=== PATIENT | male | born 1965 | race Caucasian/White ===

== ENCOUNTER 2024-03-01 06:41 | Day surgery (SDC) | payer BC, SELFPAY ==
[2024-02-25 13:55] VITALS: BMI 27.9
[2024-02-25 14:02] LABS: Hematocrit 41.9 % (39.0-52.0); Hemoglobin 13.9 g/dL (13.0-18.0); Mean Corp Hgb Conc. 33.2 g/dL (33.0-37.0); Mean Corpuscular Volume 93.3 fL (80.0-94.0); Mean Platelet Volume 9.7 fL (7.4-10.4); Platelet Count 266 10^3/uL (130-400); Red Blood Cell Count 4.49 10^6/uL (4.70-6.10); Red Cell Dist. Width 12.7 % (11.5-14.5); White Blood Cell Count 7.2 10^3/uL (4.8-10.8)
[2024-02-25 14:49] LABS: Glycohemoglobin (HgbA1c) 5.9 % (4.0-5.6)
[2024-02-25 15:48] LABS: ALT (SGPT) 54 U/L (0-50); AST (SGOT) 44 U/L (17-59); Albumin 5.3 g/dl (3.5-5.0); Alkaline Phosphatase 102 U/L (38-126); Blood Urea Nitrogen 20 mg/dl (9-20); Calcium 9.7 mg/dl (8.4-10.2); Carbon Dioxide 26 mmol/L (22-30); Chloride 102 mmol/L (98-107); Estimated Creatinine Clearance 101 ml/min; Glucose 114 mg/dl (70-99); Potassium 4.4 mmol/L (3.5-5.1); Sodium 143 mmol/L (135-145); Total Bilirubin 0.7 mg/dl (0.2-1.3); Total Protein 7.8 g/dl (6.3-8.2); eGFR > 60.00
[2024-03-01] VITALS (8 sets, daily range): BP systolic 105–158; BP diastolic 68–93; BMI 27.9
[2024-03-01] MEDS: TYLENOL 1000 MG PO (07:27)
[2024-03-01] MEDS: EMEND 40 MG PO (07:53)
--- NOTE | 2024-03-01 08:10 | W.DS.TRANS ---
DC Summary - [employer]
-
Discharge Instructions:
Sleep Apnea Risk Intermediate
Discharge Diagnosis/Procedures Cruz Choudhary 03/01/24
Diet As tolerated
Activity No strenuous activity
Driving Restrictions No driving
Instructions:
Stand-Alone Forms: SDS Total Shoulder D/C Inst.
Changes to Home Medications: Yes
Discharge Medications:
DC Medications w/original date entered in [employer]
Bioflex 1 tab PO DAILY 09/28/20
Tart De Oliveira Extract 3,000 mg PO DAILY 09/28/20
Testosterone 1 cap PO DAILY 09/28/20
Vitamin D3: 5,000 units PO DAILY 09/28/20
allopurinol 100 mg tablet 300 mg PO DAILY 09/28/20
Coq10 400 mg PO DAILY ##0 10/31/20
omega 6-klg-xxo-fish oil 300 mg-1,000 mg capsule (Fish Oil) 1 ea PO DAILY ##0 10/31/20
Prevagen 1 dose PO DAILY 02/23/24
Red Yeast Rice 1,100 mg PO DAILY 02/23/24
Tumeric 1,500 dose PO DAILY 02/23/24
ascorbic acid (vitamin C) 500 mg tablet 500 mg PO DAILY 02/23/24
atorvastatin 20 mg tablet 20 mg PO DAILY 02/23/24
diphenhydramine 25 mg-acetaminophen 500 mg tablet (Tylenol PM Extra Strength) 2 tab PO HS PRN pain 02/23/24
melatonin 10 mg tablet 10 mg PO HS PRN insomnia 02/23/24
qiiwpnocibnt-rwn-sviwg acid-vit K-lycop 400 mcg-20 mcg-370 mcg tablet (Men's 50 Plus Multivitamin) 1 tab PO DAILY 02/23/24
mupirocin 2 % topical ointment 1 applic intranasal BID #1 tube 02/25/24
Saccharomyces boulardii 250 mg capsule (Florastor) 250 mg PO BID #1 cap 03/01/24
acetaminophen 325 mg tablet (Tylenol) 650 mg (2 x 325 mg) PO QID #1 tab 03/01/24
aspirin 325 mg tablet 325 mg PO DAILY blood clot prevention #1 tab 03/01/24
dexamethasone 4 mg tablet 4 mg PO BID inflammation #6 tabs 03/01/24
docusate sodium 100 mg capsule (Colace) 100 mg PO BID stool softner #1 cap 03/01/24
doxycycline hyclate 100 mg capsule 100 mg PO BID infection prevention #10 caps 03/01/24
famotidine 20 mg tablet 20 mg PO HS GI prophylaxis #30 tabs 03/01/24
gabapentin 300 mg capsule 300 mg PO HS sleep/pain #10 caps 03/01/24
magnesium hydroxide 400 mg/5 mL oral suspension (Milk of Magnesia) 30 ml PO HS PRN Constipation #1 mL 03/01/24
meloxicam 15 mg tablet 15 mg PO DAILY anti-inflammatory #14 tabs 03/01/24
ondansetron 4 mg disintegrating tablet 4 mg PO Q6H PRN n/v #20 tabs 03/01/24
oxycodone 5 mg tablet 5 mg PO Q6H PRN 1 tab moderate pain, 2 tabs severe pain #30 tabs 03/01/24
sennosides 8.6 mg tablet (Senokot) 17.2 mg (2 x 8.6 mg) PO BID laxative #2 tabs 03/01/24
Home Medication Changes
mupirocin 2 % topical ointment 1 applic intranasal BID #1 tube 02/25/24
Saccharomyces boulardii 250 mg capsule (Florastor) 250 mg PO BID #1 cap 03/01/24
acetaminophen 325 mg tablet (Tylenol) 650 mg (2 x 325 mg) PO QID #1 tab 03/01/24
aspirin 325 mg tablet 325 mg PO DAILY blood clot prevention #1 tab 03/01/24
dexamethasone 4 mg tablet 4 mg PO BID inflammation #6 tabs 03/01/24
docusate sodium 100 mg capsule (Colace) 100 mg PO BID stool softner #1 cap 03/01/24
doxycycline hyclate 100 mg capsule 100 mg PO BID infection prevention #10 caps 03/01/24
famotidine 20 mg tablet 20 mg PO HS GI prophylaxis #30 tabs 03/01/24
gabapentin 300 mg capsule 300 mg PO HS sleep/pain #10 caps 03/01/24
magnesium hydroxide 400 mg/5 mL oral suspension (Milk of Magnesia) 30 ml PO HS PRN Constipation #1 mL 03/01/24
meloxicam 15 mg tablet 15 mg PO DAILY anti-inflammatory #14 tabs 03/01/24
ondansetron 4 mg disintegrating tablet 4 mg PO Q6H PRN n/v #20 tabs 03/01/24
oxycodone 5 mg tablet 5 mg PO Q6H PRN 1 tab moderate pain, 2 tabs severe pain #30 tabs 03/01/24
sennosides 8.6 mg tablet (Senokot) 17.2 mg (2 x 8.6 mg) PO BID laxative #2 tabs 03/01/24
Pending Results: No
[2024-03-01] MEDS: MOTRIN 600 MG PO (13:08)
[2024-03-01] MEDS: ANCEF 5 IV (13:51)
== END 2024-03-01 13:57 | disposition home or self-care (01) ==
LOC: SDS 06:41
PROVIDERS: ATTENDING PHYSICIAN Orthopaedic Surgery Hand Surgery; FAMILY PHYSICIAN Family Medicine
DX: M19.012 Primary osteoarthritis, left shoulder (principal)
CPT/HCPCS: 23472; 36415; 73020; 80053; 83036; 85027; 87070

== ENCOUNTER 2024-03-19 00:13 | Emergency (ER) | payer BC, SELFPAY ==
[2024-03-19 00:18] VITALS: BP 130/92
[2024-03-19 01:07] VITALS: BMI 31.3
--- NOTE | 2024-03-19 01:37 | ED.GENMED ---
History of Present Illness
General
Chief Complaint: Post Operative Problem(s)
Source: patient
Exam Limitations: none
Time Seen by Provider: 03/19/24 01:35
Nursing documentation reviewed up to this point in time: agreed with
History of Present Illness
History of Present Illness:
Pleasant 58-year-old male that presents to the emergency department with sudden onset left wrist and hand pain. Patient does have a history of gout and also had a left total shoulder replaced on March 01, [address] Mohan. Patient denies
fever or chills. Patient did take Tylenol without relief. States that movement of the hand or wrist exacerbates the pain. Reports no chest pain or shortness of breath. Has no increased pain in the left shoulder.
Past History
Past History
ED Past Medical History: Hypercholesterolemia
ED Past Surgical History: Appendectomy and Orthopedic
Social History
Tobacco: Smoker
Personal:
Employment: Employed
Review of Systems
Review of Systems
Allergies reviewed?: Yes
All Other Systems: ROS reviewed and negative except as documented in HPI and ROS
Constitutional: Reports no symptoms
EENT: Reports no symptoms
Respiratory: Reports no symptoms
Cardiac: Reports no symptoms
ABD/GI: Reports no symptoms
: Reports no symptoms
Musculoskeletal: Reports joint pain, joint swelling and muscle pain
Skin: Reports no symptoms
Neurological: Reports no symptoms; Denies headache or numbness
Endocrine: Reports no symptoms
Hematologic/Lymphatic: Reports no symptoms
Psychiatric: Reports no symptoms
Phy Exam
Physical Exam
Physical Exam:
Physical Exam
Vital signs and allergy list reviewed and agreed with.
GENERAL: Alert , in minimal apparent distress
EYE: pupils equal, EOMI, anicteric
NECK: Supple, no significant adenopathy. No masses. Trachea midline
ENT: Oropharynx is clear, mmm.
CARDIAC: Regular rate and rhythm . No M/R/G
LUNGS: Clear breath sounds bilaterally, no acute respiratory distress, no wheezes/rales/rhonchi
ABDOMEN: Soft, without focal tenderness, no r/g, no cvat. Normal BSx4q
NEUROLOGICAL: Alert and oriented, no focal neuro deficits
SKIN: Warm and dry, skin intact.
MUSCULOSKELETAL: No edema, well perfused. Moves all 4 extremities
PSYCH: Normal and appropriate interaction.
Comment
comment:
Patient seen. Patient in a sling. OpSite looks great. No signs of cellulitis. Swelling. Patient tender in the left wrist. Full range of motion.
Sepsis
Sepsis Screening
Sepsis Assessment: Sepsis Ruled Out
Sepsis Screen
Sepsis Screen: Sepsis Ruled Out
Date: 03/19/24
Time: 06:49
Course
Orders/Labs/Results
Orders:
Orders
03/19/24 01:41
Wrist, Left 3 Views CR [CR Wrist - Left Min 3 Views] Urgent
Comment:
Reason For Exam: pain
03/19/24 01:42
US Arms, Left [US Periph Venous UPPER Ext LT] Urgent
Comment:
Reason For Exam: left arm pain and swelling post surgery
03/19/24 01:45
Oxycodone/Acetaminophen [Percocet 5/325] 1 tablet PO NOW STA
03/19/24 02:06
CRP [C-Reactive Protein] Urgent
Complete Blood Count/With Diff Urgent
Comprehensive Metabolic Panel Urgent
Lactic Acid Urgent
PTT Urgent
Prothrombin Time Urgent
Sed Rate [Erythrocyte Sed Rate] Urgent
Uric Acid Urgent
03/19/24 04:57
[place] Wrist Left-Treatment ONCE
Ketorolac [Toradol] 15 mg IV NOW STA
Abnormal Lab Results
03/19/24
02:06
WBC 12.3 H 10^3/uL
(4.8-10.8)
RBC 3.94 L 10^6/uL
(4.70-6.10)
Hgb 12.1 L g/dL
(13.0-18.0)
Hct 36.1 L %
(39.0-52.0)
Abs Immat Gran (auto) 0.1 H 10^3/uL
(0-0.05)
Absolute Neuts (auto) 8.7 H 10^3/uL
(1.4-6.5)
Absolute Monos (auto) 1.2 H 10^3/uL
(0.1-0.6)
Absolute Eos (auto) 1.0 H 10^3/uL
(0-0.7)
Immature Gran % 0.7 H %
(0-0.5)
Lymphocytes % 10.5 L %
(20.5-51.1)
Monocytes % 9.5 H %
(1.7-9.3)
Eosinophils % 7.7 H %
(0-6)
BUN 21 H mg/dl
(9-20)
Glucose 125 H mg/dl
(70-99)
Alkaline Phosphatase 147 H U/L
(38-126)
C-Reactive Protein 23.00 H mg/L
(0.0-10.00)
03/19/24 02:06
03/19/24 02:06
Vital Signs
Initial and Last Documented VS:
Initial Vital Signs
Temp Pulse Resp BP Pulse Ox
99.4 F 102 20 130/92 96
03/19/24 00:18 03/19/24 00:18 03/19/24 00:18 03/19/24 00:18 03/19/24 00:18
Last Documented Vital Signs
Temp Pulse Resp BP Pulse Ox
99.4 F 86 20 140/77 96
03/19/24 00:18 03/19/24 06:20 03/19/24 00:18 03/19/24 06:08 03/19/24 06:20
*Critical Care Note
Total Time (30-74mins, 75-104mins- exclusive of procedures): Not Applicable
ED Attending Note
-
Portions of this chart may have been created with voice recognition software.� Occasional wrong word or��sound alike� substitutions may have occurred due to the inherent limitations of voice recognition software.
Discharge Plan
Departure
Patient Disposition: Home (Routine Discharge)
Date of Disposition: 03/19/24
Time of Disposition: 05:52
Patient with high blood pressure during this ER visit?: Yes
Discharge Problem:
Musculoskeletal pain
Instructions: Muscle and Bone Pain (DC), Postoperative Pain (DC), BLOOD PRESSURE
Prescriptions:
New
diclofenac sodium 75 mg tablet,delayed release (DR/EC)
75 mg PO BID Qty: 10 0RF
No Action
allopurinol 100 MG tablet
300 mg PO DAILY
Bioflex
1 tab PO DAILY
Tart De Oliveira Extract
3,000 mg PO DAILY
Testosterone
1 cap PO DAILY
Patient Comments:
support
Vitamin D3:
5,000 units PO DAILY
omega 3-exs-myk-fish oil [Fish Oil] 1 EACH capsule
1 ea PO DAILY Qty: 0 0RF
Rx Instructions:
resume in one week
Coq10
400 mg PO DAILY Qty: 0 0RF
Red Yeast Rice
1,100 mg PO DAILY
Rx Instructions:
resume when off aspirin
atorvastatin 20 mg Tablet
20 mg PO DAILY
ascorbic acid (vitamin C) 500 mg Tablet
500 mg PO DAILY
diphenhydramine-acetaminophen [Tylenol PM Extra Strength] 25-500 mg Tablet
2 tab PO HS PRN (Reason: pain)
melatonin 10 mg Tablet
10 mg PO HS PRN (Reason: insomnia)
Men's 50 Plus Multivitamin 400-20-370 mcg Tablet
1 tab PO DAILY
Prevagen
1 dose PO DAILY
Tumeric
1,500 dose PO DAILY
mupirocin 2 % ointment
1 applic intranasal BID Qty: 1 0RF
Patient Comments:
Patient administered this medication nasally as ordered at 04:00 on 03/01/2024. Patient started this medication on 02/29/24.
sennosides [Senokot] 8.6 mg tablet
17.2 mg PO BID Qty: 2 0RF
doxycycline hyclate 100 mg capsule
100 mg PO BID Qty: 10 0RF
Rx Instructions:
Take with probiotic
aspirin 325 mg tablet
325 mg PO DAILY Qty: 1 0RF
Rx Instructions:
Take with food
meloxicam 15 mg tablet
15 mg PO DAILY Qty: 14 0RF
Rx Instructions:
take with food
post-op
magnesium hydroxide [Milk of Magnesia] 400 mg/5 mL suspension
30 ml PO HS PRN (Reason: Constipation) Qty: 1 0RF
dexamethasone 4 mg tablet
4 mg PO BID Qty: 6 0RF
Rx Instructions:
take with food
post-op use only
docusate sodium [Colace] 100 mg capsule
100 mg PO BID Qty: 1 0RF
gabapentin 300 mg capsule
300 mg PO HS Qty: 10 0RF
ondansetron 4 mg tablet,disintegrating
4 mg PO Q6H PRN (Reason: n/v) Qty: 20 0RF
Rx Instructions:
take 1/2h b/f pain med if recurrent nausea
allow to dissolve in mouth w/o water
Saccharomyces boulardii [Florastor] 250 mg capsule
250 mg PO BID Qty: 1 0RF
famotidine 20 mg tablet
20 mg PO HS Qty: 30 0RF
Rx Instructions:
post-op
oxycodone 5 mg tablet
5 - 10 mg PO Q6H PRN (Reason: moderate-severe pain) Qty: 30 0RF
Rx Instructions:
1 tab for moderate pain, 2 if severe.
Dx total joint.
Referrals:
Chavez Mohan MD [Active] - Next open appointment
David Thorne DO [Family Provider] -
Activity Restrictions/Additional Instructions:
It was a pleasure meeting you and taking part in your care. We hope for your continued healing and wellness.
Please read discharge instructions in their entirety. However, they are for general education and may not describe your exact diagnosis at discharge. Information on your ER visit and medical conditions were discussed with you along with appropriate
follow up information...
If indicated, please take your medications as instructed and indicated on discharge paperwork.
Please schedule a follow up appointment as directed. Call to schedule an appointment
Please return to the emergency department with ANY change in, persisting, or worsening of symptoms. If any of your symptoms do not improve, or persist, or become more severe within 6-12 hours, please return to the emergency department for further
care.
Please return to the emergency department if you develop a headache, neck pain/stiffness, fever greater than 100.4F, chest pain, shortness of breath, persistent nausea, vomiting, slurred speech, difficulty walking, numbness/tingling, weakness, signs
of infection or any other symptoms that are worrisome to you.
If you have any questions or concerns please do not hesitate to call the Hospital at or E-mail me directly at [email or web address]
Interventions
Interventions:
*Risk Screen - Suicide Last Done: 03/19/24 00:18
*General Assessment Last Done: 03/19/24 00:18
*Neglect/Abuse Screening Last Done: 03/19/24 00:18
ED- Fall Risk Assessment Last Done: 03/19/24 00:18
*ED COVID-19 Vaccine History Last Done: 03/19/24 00:18
*Nursing Disposition Last Done: 03/19/24 06:20
ED-Musculoskeletal Assessment Last Done: 03/19/24 01:10
ED-Peripheral Vascular Assessment Last Done: 03/19/24 01:10
ED-Skin Assessment Last Done: 03/19/24 01:10
Discharge Date and Time
Discharge Date/Time: 03/19/24 06:27
Print Language: [place]
[2024-03-19] MEDS: PERCOCET 5/325 1 TABLET PO (01:49)
[2024-03-19 02:00] VITALS: BP 136/84
[2024-03-19 02:17] LABS: % Basophils 0.4 % (0-2); % Eosinophils 7.7 % (0-6); % Immature Granulocytes 0.7 % (0-0.5); % Lymphocytes 10.5 % (20.5-51.1); % Monocytes 9.5 % (1.7-9.3); % Neutrophils 71.2 % (42.2-75.2); Absolute Basophils 0.1 10^3/uL (0-0.2); Absolute Immature Granulocytes 0.1 10^3/uL (0-0.05); Absolute Lymphocytes 1.3 10^3/uL (1.2-3.4); Absolute Monocytes 1.2 10^3/uL (0.1-0.6); Absolute Neutrophils 8.7 10^3/uL (1.4-6.5); Hematocrit 36.1 % (39.0-52.0); Hemoglobin 12.1 g/dL (13.0-18.0); Mean Corp Hgb Conc. 33.5 g/dL (33.0-37.0); Mean Corpuscular Hgb 30.7 pg (27.0-31.0); Mean Corpuscular Volume 91.6 fL (80.0-94.0); Mean Platelet Volume 9.2 fL (7.4-10.4); Nucleated Red Blood Cells % 0 % (-); Platelet Count 265 10^3/uL (130-400); Red Blood Cell Count 3.94 10^6/uL (4.70-6.10); Red Cell Dist. Width 13.5 % (11.5-14.5); White Blood Cell Count 12.3 10^3/uL (4.8-10.8)
[2024-03-19 02:20] LABS: Erythrocyte Sed Rate 19 mm/hour (0-20)
[2024-03-19 02:26] LABS: APTT 32.7 Sec (23.4-35.0); INR 0.89; PT 12.6 Sec (11.4-14.6)
[2024-03-19 02:29] LABS: Lactic Acid 1.7 mmol/L (0.7-2.0)
[2024-03-19 02:36] LABS: ALT (SGPT) 45 U/L (0-50); AST (SGOT) 35 U/L (17-59); Albumin 4.7 g/dl (3.5-5.0); Alkaline Phosphatase 147 U/L (38-126); Blood Urea Nitrogen 21 mg/dl (9-20); Calcium 9.3 mg/dl (8.4-10.2); Carbon Dioxide 29 mmol/L (22-30); Chloride 100 mmol/L (98-107); Estimated Creatinine Clearance 116 ml/min; Glucose 125 mg/dl (70-99); Potassium 4.5 mmol/L (3.5-5.1); Sodium 139 mmol/L (135-145); Total Bilirubin 0.3 mg/dl (0.2-1.3); Total Protein 7.2 g/dl (6.3-8.2); Uric Acid 5.1 mg/dl (3.5-8.5); eGFR > 60.00
[2024-03-19 04:27] VITALS: BP 125/71
[2024-03-19 05:00] VITALS: BP 135/86
[2024-03-19] MEDS: TORADOL 15 MG IV (05:25)
[2024-03-19 06:00] VITALS: BP 136/83
[2024-03-19 06:08] VITALS: BP 140/77
== END 2024-03-19 06:27 | disposition home or self-care (01) ==
LOC: EMR 00:13
PROVIDERS: EMERGENCY PHYSICIAN Student in an Organized Health Care Education/Training Program; FAMILY PHYSICIAN Family Medicine
DX: M79.18 Myalgia, other site (principal); M25.532 Pain in left wrist; M79.642 Pain in left hand; E78.00 Pure hypercholesterolemia, unspecified; F17.200 Nicotine dependence, unspecified, uncomplicated; Z90.49 Acquired absence of other specified parts of digestive tract
CPT/HCPCS: 99284; 96374; 73110; 80053; 83605; 84550; 85025; 85610; 85652; 85730; 86140; 93971

== ENCOUNTER 2024-11-01 06:25 | Day surgery (SDC) | payer BC, SELFPAY | END 2024-11-01 11:40 | disposition home or self-care (01) | LOC: GI 06:25 | PROVIDERS: ATTENDING PHYSICIAN Internal Medicine | DX: Z12.11 Encounter for screening for malignant neoplasm of colon (principal); K57.30 Diverticulosis of large intestine without perforation or abscess without bleeding; D12.3 Benign neoplasm of transverse colon; K62.1 Rectal polyp; Z86.0101 Personal history of adenomatous and serrated colon polyps; Z80.0 Family history of malignant neoplasm of digestive organs | CPT/HCPCS: 45380; 88305 ==